=== PATIENT | female | born 1970 | race Caucasian/White ===

== ENCOUNTER → 2016-12-15 | Outpatient (CLI) | payer OTHER, BC ==
[~2016-12-15] MED LIST: PROTONIX40 MG PO
== END ==
LOC: MRI 12:51
DX: Z12.31 Encounter for screening mammogram for malignant neoplasm of breast (principal); G43.909 Migraine, unspecified, not intractable, without status migrainosus; Z90.710 Acquired absence of both cervix and uterus
CPT/HCPCS: 70551; G0202

== ENCOUNTER → 2017-01-05 | Outpatient (CLI) | payer OTHER, BC | LOC: RAD 08:39 | DX: M77.11 Lateral epicondylitis, right elbow (principal); M77.01 Medial epicondylitis, right elbow | CPT/HCPCS: 73085; 73222; A9577; Q9962 ==

== ENCOUNTER → 2017-02-01 | Outpatient (CLI) | payer OTHER, BC | LOC: DTC 16:11 | DX: E66.09 Other obesity due to excess calories (principal) ==

== ENCOUNTER 2017-03-21 06:52 | Emergency (ER) | payer OTHER, BC ==
[2017-03-21 07:47] LABS: HEMOGLOBIN 12.8 gm/dl (12.3-15.3); RED BLOOD COUNT 4.48 M/UL (4.00-5.10); WHITE BLOOD COUNT 6.3 K/UL (4.5-11.0)
== END 2017-03-21 16:36 | disposition home or self-care (01) ==
LOC: ER1 06:52
PROVIDERS: Emergency Medicine
DX: N20.1 Calculus of ureter (principal); Z87.442 Personal history of urinary calculi
CPT/HCPCS: 36415; 71010; 80053; 81001; 85025; 93005; 96374; 96375; 96376; 99284; J1885; J2270; J2405

== ENCOUNTER 2017-07-14 05:37 | Emergency (ER) | payer OTHER, BC ==
[2017-07-14 06:08] LABS: HEMOGLOBIN 14.3 gm/dl (12.3-15.3); RED BLOOD COUNT 4.83 M/UL (4.00-5.10); WHITE BLOOD COUNT 11.2 K/UL (4.5-11.0)
[2017-07-14 06:46] LABS: BUN/CREATININE RATIO 20 (0-10)
== END 2017-07-14 12:00 | disposition home or self-care (01) ==
LOC: ER1 05:37
PROVIDERS: Family Medicine
DX: I47.1 Supraventricular tachycardia (principal); F17.200 Nicotine dependence, unspecified, uncomplicated
CPT/HCPCS: 36415; 71010; 80053; 82550; 82553; 83874; 84484; 85025; 85379; 93005; 96361; 96374; 99285; J0153

== ENCOUNTER → 2021-01-23 | Outpatient (CLI) | payer OTHER ==
[~2021-01-23] MED LIST changes: +ALBUTEROL2.5 MG/3 M INH; +AZELASTINE137 MCG/0.; +CETIRIZINE HCL10 MG PO; +CRESTOR40 MG PO; +DICLOFENAC GEL TD; +ECOTRIN81 MG PO; +FLONASE 0.05% N16 GM; +GABAPENTIN100 MG PO; +GLUCOPHAGE500 MG PO; +LASIX20 MG PO; +LINZESS145 MCG PO; +LO-DOSE ASPIRIN81 MG PO; +LODINE CAP 300300 MG PO; +METOPROLOL SUC100 MG PO; +NORFLEX 100 MG100 MG PO; +SINGULAIR10 MG PO; +TIZANIDINE HCL4 MG PO; +TOPROL XL 50 MG50 MG PO; +UBRELVY50 MG PO; +ULTRAM50 MG PO
== END ==
LOC: EXRD 11:03
DX: M54.16 Radiculopathy, lumbar region (principal); M25.561 Pain in right knee; M25.562 Pain in left knee; M25.551 Pain in right hip; M25.552 Pain in left hip
CPT/HCPCS: 72100; 73522; 73560

== ENCOUNTER → 2021-04-21 | Outpatient (CLI) | payer OTHER ==
[2021-04-21 18:07] LABS: HEMOGLOBIN 11.2 gm/dl (12.3-15.3); RED BLOOD COUNT 3.73 M/UL (4.00-5.10); WHITE BLOOD COUNT 7.3 K/UL (4.5-11.0)
== END ==
LOC: LAB 17:48
PROVIDERS: Nurse Practitioner Family
DX: R10.9 Unspecified abdominal pain (principal); K92.1 Melena; R53.83 Other fatigue
CPT/HCPCS: 36415; 80053; 82728; 83540; 83550; 85025; 85652

== ENCOUNTER → 2021-06-16 | Outpatient (CLI) | payer OTHER ==
[2021-06-17 11:14] LABS: RHEUMATOID ARTHRITIS FACTOR <10.0 IU/mL (0.0-13.9)
== END ==
LOC: RAD 12:21
PROVIDERS: Nurse Practitioner Family
DX: M79.642 Pain in left hand (principal); M79.641 Pain in right hand; M79.643 Pain in unspecified hand; M79.10 Myalgia, unspecified site; M54.5 Low back pain; D89.9 Disorder involving the immune mechanism, unspecified; M25.50 Pain in unspecified joint; R76.8 Other specified abnormal immunological findings in serum; K21.9 Gastro-esophageal reflux disease without esophagitis; M47.898 Other spondylosis, sacral and sacrococcygeal region
CPT/HCPCS: 36415; 72202; 73130; 82550; 83520; 85652; 86140; 86200; 86431

== ENCOUNTER → 2021-07-01 | Outpatient (CLI) | payer OTHER | LOC: MAMO 14:55 | DX: Z12.31 Encounter for screening mammogram for malignant neoplasm of breast (principal) | CPT/HCPCS: 77063; 77067 ==

== ENCOUNTER → 2022-01-29 | Day surgery (SDC) | payer OTHER ==
[~2022-01-29] MED LIST changes: +ACETAMINOPHEN325 MG PO; +AIMOVIG AU140 MG/1 M SQ; +ATORVASTATIN CA80 MG PO; +FLUTICASONE-SA1 EAC3; +FUROSEMIDE20 MG PO; +MODAFINIL200 MG PO; +MONTELUKAST SOD10 MG PO; +PATADAY2.5 ML EYEBOTH; +PREDNISONE 10 M10 MG PO; +PROCHLORPERAZIN10 MG PO
== END | disposition home or self-care (01) ==
LOC: OR 06:52
DX: Z12.11 Encounter for screening for malignant neoplasm of colon (principal); Z86.010 Personal history of colon polyps; Z80.0 Family history of malignant neoplasm of digestive organs; E78.5 Hyperlipidemia, unspecified; K21.9 Gastro-esophageal reflux disease without esophagitis; M19.90 Unspecified osteoarthritis, unspecified site; E78.00 Pure hypercholesterolemia, unspecified; E66.9 Obesity, unspecified; Z68.33 Body mass index [BMI] 33.0-33.9, adult; Z87.891 Personal history of nicotine dependence; Z79.82 Long term (current) use of aspirin; Z79.891 Long term (current) use of opiate analgesic; Z79.899 Other long term (current) drug therapy
CPT/HCPCS: 82962; J2704